=== PATIENT | male | born 1965 | race African-American/Black ===

== ENCOUNTER 2016-05-06 21:22 | Emergency (ER) | payer SELFPAY ==
--- NOTE | 2016-05-06 21:43 | ER Document Report ---
Addendum entered and electronically signed by MEREDITH PINA NP 05/06/16 21:44 : Course - Re-evaluation Re-evalutation: 05/06/16 21:44 Patient took 650 mg of aspirin prior to arrival Original Note: ED Medical Screen (RME) - General Stated Complaint: CHECK PAIN Mode of Arrival: Ambulatory Information source: Patient Notes: Patient is left-sided chest pain that started 1 hour ago. Pain radiates into left side of neck. No cough. No nausea or vomiting. Patient does report some shortness of breath. hx: None I have greeted and performed a rapid initial assessment of this patient. A comprehensive ED assessment and evaluation of the patient, analysis of test results and completion of the medical decision making process will be conducted by additional ED providers. - Related Data Allergies/Adverse Reactions: No Known Allergies Allergy (Unverified 09/14/11 21:43) Past Medical History - Immunizations Hx Diphtheria, Pertussis, Tetanus Vaccination: Yes Physical Exam - Cardiovascular Rhythm: Regular Heart sounds: S1 appreciated, S2 appreciated Murmur: No
[2016-05-06 21:45] VITALS: BP 121/71
[2016-05-06 22:42] LABS: ABSOLUTE EOSINOPHILS # (AUTO) 0.2 10^3/uL (0.0-0.6); ABSOLUTE LYMPHOCYTES (AUTO) 1.1 10^3/uL (0.5-4.7); ABSOLUTE MONOCYTES (AUTO) 0.7 10^3/uL (0.1-1.4); ABSOLUTE NEUT (AUTO) 2.5 10^3/uL (1.7-8.2); BASOPHILS % (AUTO) 0.7 % (0-2); EOSINOPHILS % (AUTO) 4.3 % (0-6); HEMATOCRIT 42.7 % (37.9-51.0); HEMOGLOBIN 14.1 g/dL (13.5-17.0); HGB HCT DIFFERENCE -0.4; MEAN CORPUSCULAR HEMOGLOBIN 27.1 pg (27.0-33.4); MEAN CORPUSCULAR VOLUME 82 fl (80-97); MONOCYTES % (AUTO) 16.3 % (3-13); RED CELL DISTRIBUTION WIDTH 13.4 % (11.5-14.0); SEGMENTED NEUTROPHILS % (AUTO) 54.7 % (42-78); WHITE BLOOD COUNT 4.5 10^3/uL (4.0-10.5)
[2016-05-06 22:55] LABS: ALANINE AMINOTRANSFERASE 32 U/L (21-72); ALBUMIN 4.3 g/dL (3.5-5.0); ALKALINE PHOSPHATASE 66 U/L (38-126); ANION GAP 12 (5-19); ASPARTATE AMINO TRANSFERASE 24 U/L (17-59); BILIRUBIN,TOTAL 0.8 mg/dL (0.2-1.3); BLOOD UREA NITROGEN 18 mg/dL (7-20); CALCIUM 9.5 mg/dL (8.4-10.2); CARBON DIOXIDE 28 mmol/L (22-30); CHLORIDE 103 mmol/L (98-107); CREATINE KINASE 211 U/L (55-170); CREATININE RESULT 1.29 mg/dL (0.52-1.25); GLUCOSE 80 mg/dL (75-110); LIPASE 229.9 U/L (23-300); POTASSIUM 4.1 mmol/L (3.6-5.0); SODIUM 142.8 mmol/L (137-145); TOTAL PROTEIN 7.6 g/dL (6.3-8.2)
[2016-05-06 22:56] LABS: APPEARANCE,URINE CLEAR; BILIRUBIN,URINE NEGATIVE (NEGATIVE); GLUCOSE, URINE NEGATIVE (NEGATIVE); KETONES,URINE NEGATIVE (NEGATIVE); LEUKOCYTE ESTERASE,URINE NEGATIVE (NEGATIVE); NITRITE,URINE NEGATIVE (NEGATIVE); PROTEIN,URINE NEGATIVE (NEGATIVE); URINE SPECIFIC GRAVITY 1.019
[2016-05-06 23:07] LABS: CREATINE KINASE MB 0.56 ng/mL (<4.55); TROPONIN I < 0.012 ng/mL
[2016-05-06 23:14] LABS: URINE BARBITURATES SCREEN NEGATIVE; URINE METHADONE SCREEN NEGATIVE; URINE OPIATES LOW NEGATIVE; URINE PHENCYCLIDINE SCREEN NEGATIVE
--- NOTE | 2016-05-07 08:09 | EKG REPORT ---
SEVERITY:- NORMAL ECG - SINUS RHYTHM : Confirmed by: Isrrael Duong MD 07-May-2016 08:08:35
== END 2016-05-07 00:40 | disposition left against medical advice (07) ==
LOC: ER 21:22
DX: R07.9 Chest pain, unspecified (principal); R06.02 Shortness of breath; Z53.20 Procedure and treatment not carried out because of patient's decision for unspecified reasons
CPT/HCPCS: 36415; 71020; 80053; 80307; 81001; 82550; 82553; 83690; 84484; 85025; 93005; 93010; 99281

== ENCOUNTER 2016-06-22 02:37 | Emergency (ER) | payer SELFPAY ==
[2016-06-22 02:54] VITALS: BP 133/80
--- NOTE | 2016-06-22 10:24 | EKG REPORT ---
SEVERITY:- NORMAL ECG - SINUS RHYTHM : Confirmed by: Isrrael Duong MD 22-Jun-2016 10:23:11
== END 2016-06-22 04:20 | disposition left against medical advice (07) ==
LOC: ER 02:37
DX: Z53.21 Procedure and treatment not carried out due to patient leaving prior to being seen by health care provider (principal)
CPT/HCPCS: 93005; 93010

== ENCOUNTER 2017-04-29 13:15 | Emergency (ER) | payer SELFPAY ==
[2017-04-29 13:29] VITALS: BP 124/74
[2017-04-29] MEDS ORDERED: DEXAMETHASONE SOD PHOS INJ 10 MG/1 ML VIAL IM ONE (15:49)
[2017-04-29] MEDS ORDERED: KETOROLAC TROMETHAMINE 60 MG/2 ML SDV IM ONE (15:49)
--- NOTE | 2017-04-29 15:55 | ER Document Report ---
ED Neck/Back Problem - General Chief Complaint: Neck Pain >24hrs old Stated Complaint: NECK PAIN Time Seen by Provider: 04/29/17 15:21 Mode of Arrival: Ambulatory Information source: Patient Notes: 51-year-old male presents to ED for complaint of neck pain for a week. He states he has not fallen or injured himself. 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 States that it is affecting his work and his sleep. He does demonstrate pain and swelling to both sides of his neck. TRAVEL OUTSIDE OF THE [place] 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 and this is what the pain has started Timing: Waxing and waning Quality of pain: Achy, Sharp, Throbbing Severity: Severe Pain Level: 5 Context: Other - Turning and bending head to paint ceilings Recent injury: No Associated symptoms: Like prior neck/back pain Exacerbated by: Other - Painting ceilings by leaning back Relieved by: Nothing Similar symptoms previously: Yes Recently seen / treated by doctor: No - Related Data Allergies/Adverse Reactions: No Known Allergies Allergy (Verified 04/29/17 13:16) Past Medical History - General Information source: Patient - Social History Smoking Status: Never Smoker Cigarette use (# per day): No Chew tobacco use (# tins/day): No Smoking Education Provided: No Frequency of alcohol use: None Drug Abuse: None 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 denies: DM, Thyroid Disfunction Patient has suicidal ideation: No Patient has homicidal ideation: No - Past Medical History Cardiac Medical History: Reports: None Pulmonary Medical History: Reports: Hx Bronchitis EENT Medical History: Reports: None Neurological Medical History: Reports: None Endocrine Medical History: Reports: None Renal/ Medical History: Reports: None Malignancy Medical History: Reports None GI Medical History: Reports: None Musculoskeltal Medical History: Reports Hx Musculoskeletal Trauma - Fractured left leg and a nail from a nail gun into the left leg Skin Medical History: Reports None Psychiatric Medical History: Reports: None Traumatic Medical History: Reports: Hx Fractures - Right leg had a nail gun nail in the left leg had a broken bone Infectious Medical History: Reports: None Past Surgical History: Reports: Hx Orthopedic Surgery - Nail gun now removed from right leg - Immunizations Immunizations up to date: Yes Hx Diphtheria, Pertussis, Tetanus Vaccination: Yes Review of Systems - Review of Systems Constitutional: No symptoms reported EENT: No symptoms reported Cardiovascular: No symptoms reported Respiratory: No symptoms reported Gastrointestinal: No symptoms reported Genitourinary: No symptoms reported Male Genitourinary: No symptoms reported Musculoskeletal: Muscle pain, Muscle stiffness, Neck pain Skin: No symptoms reported Hematologic/Lymphatic: No symptoms reported Neurological/Psychological: No symptoms reported -: Yes All other systems reviewed and negative Physical Exam - Vital signs Vitals: Temp Pulse Resp BP Pulse Ox 98.0 F 76 18 124/74 96 04/29/17 13:27 04/29/17 13:27 04/29/17 13:27 04/29/17 13:27 04/29/17 13:27 Interpretation: Normal - General General appearance: Appears well, Alert - HEENT Head: Normocephalic, Atraumatic Eyes: Normal Pupils: PERRL - Respiratory Respiratory status: No respiratory distress Chest status: Nontender Breath sounds: Normal Chest palpation: Normal - Cardiovascular Rhythm: Regular Heart sounds: Normal auscultation Murmur: No - Abdominal Inspection: Normal Distension: No distension Bowel sounds: Normal Tenderness: Nontender Organomegaly: No organomegaly - Back Back: Normal, Tender - Pain tightness to both sides of neck due to his occupation.. No: Deformity/step-off, CVA tenderness, Vertebra tenderness, Scars , Scoliosis, Wounds - Extremities General upper extremity: Normal inspection, Nontender, Normal color, Normal ROM , Normal temperature General lower extremity: Normal inspection, Nontender, Normal color, Normal ROM , Normal temperature, Normal weight bearing. No: Alex's sign - Neurological Neuro grossly intact: Yes Cognition: Normal Orientation: AAOx4 [place] Coma Scale Eye Opening: Spontaneous [place] Coma Scale Verbal: Oriented [place] Coma Scale Motor: Obeys Commands [place] Coma Scale Total: 15 Speech: Normal Motor strength normal: LUE, RUE, LLE, RLE Sensory: Normal - Psychological Associated symptoms: Normal affect, Normal mood - Skin Skin Temperature: Warm Skin Moisture: Dry Skin Color: Normal Course - Re-evaluation Re-evalutation: 04/29/17 15:58 Discussed need to use ice heat and muscle relaxers for the neck pain that he has muscle strain from looking at ceilings to pain. Patient was given Toradol Decadron in the emergency room and discharged home with prescription for ibuprofen and Flexeril patient was instructed on use of shoulder exercises and neck exercises to help reduce this discomfort. Patient was instructed to follow -up with her primary doctor within the week to ensure that this is improving. - Vital Signs Vital signs: Temp Pulse Resp BP Pulse Ox 98.0 F 76 18 124/74 96 04/29/17 13:27 04/29/17 13:27 04/29/17 13:27 04/29/17 13:27 04/29/17 13:27 Discharge - Discharge Clinical Impression: Cervical strain, acute Qualifiers: Encounter type: initial encounter Qualified Code(s): S16.1XXA - Strain of muscle, fascia and tendon at neck level, initial encounter Condition: Stable Disposition: HOME, SELF-CARE Instructions: Family Physicians / Practices, Exercise Program for the Shoulder (OM) Additional Instructions: NECK INJURY (CERVICAL STRAIN): You have a neck strain. This is an injury to the muscles and ligaments in the neck. There is no evidence of a fracture of the neck bones. Also, no injury to the spinal cord or nerve roots was detected. Usually, stiffness and pain INCREASE for the first 24-48 hours after the injury. The pain will gradually resolve and the neck will become more mobile. Most patients are back at work or school within a few days. Typically, complete healing takes about two or three weeks. The usual initial treatment is rest and cold packs. A neck collar may be placed to keep the muscles of the neck at rest. Antiinflammatory and muscle relaxing medication are often used to reduce the spasm and irritation. You should call the doctor, or go to the hospital, if you develop numbness or weakness in any extremity, problems with your bladder or bowel, or pain radiating down the arms. Massages to the neck would also benefit you. I have put you off work for 2 days, that does not mean to go home and sit on the couch that means you need to move around exercise usually ice and heat usual muscle relaxers STEROID MEDICATION: You have been given an injection of medicine of the cortisone/steroid class. This medication is used to control inflammation or allergy. It is often continued as a pill for a short period of time, until the acute process subsides. There are usually no side effects from short-term use of cortisone-like medications. Some persons feel an increased sense of well-being and are not sleepy at bedtime. Long-term use of cortisone medications is best avoided, unless required for a severe condition. If your condition does not remit, or relapses after the course of corticosteroid medication, you should consult your physician. Toradol Injection You have been given an injection of ketorolac tromethamine (Toradol). This is an excellent, safe drug for pain control. It also has potent antiinflammatory action. You should have significant pain relief within about one hour. Toradol is not addicting and is non-sedating. It does not interfere with driving or work. Call or return if you develop itching, hives, shortness of breath, or rash. MUSCLE STRAIN: You have strained a muscle -- torn the fibers within the muscle. This often occurs with strenuous exertion, or during an injury that suddenly stretches the muscle. The seriousness of a strain varies. Some strains heal within days, others cause problems for months. X-rays cannot show a muscle strain. X-rays are taken only if symptoms suggest that a fracture could be present. The usual treatment of a muscle strain is rest and ice packs. Sometimes, a sling, splint, or crutches may be necessary to rest the muscle. The muscle can be used again once pain subsides. Severe strains require a special exercise and stretching program to prevent permanent stiffness and disability. Your doctor will advise you if this will be necessary. Call the doctor immediately if pain or swelling becomes severe, or if numbness or discoloration develop. USE OF TYLENOL (ACETAMINOPHEN): Acetaminophen may be taken for pain relief or fever control. It's much safer than aspirin, offering a wider range of "safe" dosages. It is safe during . Some brand names are Tylenol, Panadol, Datril, Anacin 3, Tempra, and Liquiprin. Acetaminophen can be repeated every four hours. The following are maximum recommended dosages: WEIGHT Dose Drops Elixir Chewable( 80mg) (LBS.) drprs=droppers tsp=teaspoon 6 40 mg 0.4 ml (1/2) 6-11 80 mg 0.8 ml (full) tsp 1 tab 12-16 120 mg 1 1/2 drprs 3/4 tsp 1 1/2 tabs 17-23 160 mg 2 drprs 1 tsp 2 tabs 24-30 240 mg 3 drprs 1 1/2 tsp 3 tabs 30-35 320 mg 2 tsp 4 tabs 36-41 360 mg 2 1/4 tsp 4 1/2 tabs 42-47 400 mg 2 1/2 tsp 5 tabs 48-53 480 mg 3 tsp 6 tabs 54-59 520 mg 3 1/4 tsp 6 1/2 tabs 60-64 560 mg 3 1/2 tsp 7 tabs 65-70 600 mg 3 3/4 tsp 7 1/2 tabs 71-76 640 mg 4 tsp 8 tabs 77-82 720 mg 4 1/2 tsp 9 tabs 83-88 800 mg 5 tsp 10 tabs >89 pounds or adults 650 mg to 900 mg Acetaminophen can be repeated every four hours. Maximum dose not to exceed 4000 mg a day. These maximum recommended dosages are slightly higher than the dosages written on the product container, but these dosages are very safe and below the toxic dosage for acetaminophen. ICE PACKS: Apply ice packs frequently against the painful area. Many different schedules are recommended, such as "20 minutes on, 20 minutes off" or "one hour ice, two hours rest." If you need to work, you may need to go longer between ice treatments. You should plan to have the area ice packed AT LEAST one fourth of the time. The ice should be applied over the wrap, tape, or splint, or over a layer of cloth -- not directly against the skin. Some ice bags have a built-in cloth and can be put directly on the skin. WARM PACKS: After approximately two days, apply gentle heat (such as a heating pad or hot water bottle) for about 20 to 30 minutes about every two hours -- at least four times daily. Warmth and elevation will help you make a more rapid recovery , and will ease the pain considerably. Do not use HOT heat, and never apply heat for longer than 30 minutes. The continuous heat can invisibly damage skin and muscles -- even when no burn is seen on the surface. Damaged muscles can make you MORE sore. MUSCLE RELAXERS: Muscle relaxing medications are usually prescribed for acute muscle spasm or injury to the neck and back. They are often combined with antiinflammatory pain medication for increased relief. You may stop the muscle relaxer when the pain and stiffness have improved. Start the medication again if spasms recur. Muscle relaxers may cause drowsiness, especially with the first dose. Do not operate machinery or drive while under the effects of the medication. Most muscle relaxers last up to 24 hours. Do not combine the medication with alcohol. FOLLOW-UP CARE: If you have been referred to a physician for follow-up care, call the physician s office for an appointment as you were instructed or within the next two days. If you experience worsening or a significant change in your symptoms, notify the physician immediately or return to the Emergency Department at any time for re-evaluation. Prescriptions: Ibuprofen 600 mg PO Q8HP PRN #20 tablet PRN Reason: Cyclobenzaprine HCl [Flexeril 10 mg Tablet] 10 mg PO TIDP PRN #15 tab PRN Reason: Forms: Return to Work
== END 2017-04-29 16:20 | disposition home or self-care (01) ==
LOC: ER 13:15
DX: S16.1XXA Strain of muscle, fascia and tendon at neck level, initial encounter (principal); M54.2 Cervicalgia; X50.3XXA Overexertion from repetitive movements, initial encounter
CPT/HCPCS: 99283; 96372; J1885; J1100

== ENCOUNTER 2017-05-11 21:46 | Inpatient (IN) | payer SELFPAY ==
[2017-05-11] MEDS ORDERED: ACETAMINOPHEN 325 MG TABLET ONE (22:26)
[2017-05-11] MEDS ORDERED: IPRATROPIUM/ALBUTEROL 0.5-2.5 MG/3 ML AMPUL NEB ONE ×2 (22:26→22:45)
[2017-05-11] MEDS ORDERED: NORMAL SALINE 1000 ML 1,000 ML IV ONE ×2 (22:39→22:46)
[2017-05-11] MEDS ORDERED: ACETAMINOPHEN 325 MG TABLET PO ONE (22:40)
[2017-05-11] MEDS ORDERED: METHYLPREDNISOLONE INJ 125 MG/2 ML SDV IV ONE (22:45)
--- NOTE | 2017-05-11 22:48 | ER Document Report ---
ED General - General Chief Complaint: Flu Symptoms Stated Complaint: DIFFICULTY BREATHING/HEAD PAIN/WEAKNESS Time Seen by Provider: 05/11/17 22:38 Notes: Patient is a 51-year-old male that comes emergency department for chief complaint of fever, body aches, difficulty breathing, congested cough. He states he has been worsening for 5 days. Multiple sick family members. He denies smoking, he denies any medical history except that he frequently has to use an albuterol inhaler at home although he is not diagnosed with asthma. He has not had the influenza vaccine. TRAVEL OUTSIDE OF THE [place] IN LAST 30 DAYS: No - Related Data Allergies/Adverse Reactions: No Known Allergies Allergy (Verified 05/11/17 22:14) Past Medical History - General Information source: Patient, Relative - Social History Smoking Status: Never Smoker Frequency of alcohol use: None Drug Abuse: None Lives with: Family Family History: Arthritis, CAD, CVA, Hyperlipidemia, Hypertension, Malignancy. denies: DM, Thyroid Disfunction Patient has suicidal ideation: No Patient has homicidal ideation: No Pulmonary Medical History: Reports: Hx Bronchitis Renal/ Medical History: Denies: Hx Peritoneal Dialysis Musculoskeltal Medical History: Reports Hx Musculoskeletal Trauma - Fractured left leg and a nail from a nail gun into the left leg Traumatic Medical History: Reports: Hx Fractures - Right leg had a nail gun nail in the left leg had a broken bone Past Surgical History: Reports: Hx Orthopedic Surgery - Nail gun now removed from right leg - Immunizations Immunizations up to date: Yes Hx Diphtheria, Pertussis, Tetanus Vaccination: Yes Review of Systems - Review of Systems Constitutional: See HPI EENT: No symptoms reported Cardiovascular: No symptoms reported Respiratory: See HPI Gastrointestinal: No symptoms reported Genitourinary: No symptoms reported Male Genitourinary: No symptoms reported Musculoskeletal: No symptoms reported Skin: No symptoms reported Hematologic/Lymphatic: No symptoms reported Neurological/Psychological: No symptoms reported Physical Exam - Vital signs Vitals: Temp Pulse Resp BP Pulse Ox 102.0 F H 127 H 28 H 99/59 L 90 L 05/11/17 22:05 05/11/17 22:05 05/11/17 22:05 05/11/17 22:05 05/11/17 22:05 - General General appearance: Other - Patient ill in appearance, moves and talks weakly - HEENT Head: Normocephalic, Atraumatic Eyes: Normal Conjunctiva: Normal Eyelashes: Normal Pupils: PERRL Mouth/Lips: Normal Mucous membranes: Normal Pharynx: Normal Neck: Normal - Respiratory Respiratory status: Respiratory distress - Tachypnea with mild labored breathing , Tachypnea Breath sounds: Nonproductive cough, Wheezing - Expiratory wheezes, Other - Scattered rhonchi mainly in the upper lobes - Cardiovascular Rhythm: Regular, Tachycardia Heart sounds: Normal auscultation, S1 appreciated, S2 appreciated Murmur: No Normal capillary refill: Yes - Abdominal Inspection: Normal Tenderness: Nontender. No: Tender, Guarding - Back Back: Normal. No: Tender - Extremities General upper extremity: Normal inspection, Nontender, Normal strength, Normal temperature General lower extremity: Normal inspection, Nontender, Normal strength, Normal temperature - Neurological Neuro grossly intact: Yes Cognition: Normal Orientation: AAOx4 [place] Coma Scale Eye Opening: Spontaneous [place] Coma Scale Verbal: Oriented [place] Coma Scale Motor: Obeys Commands [place] Coma Scale Total: 15 Speech: Normal Motor strength normal: LUE, RUE, LLE, RLE Sensory: Normal - Skin Skin Temperature: Warm Skin Moisture: Dry Skin Color: Normal Course - Re-evaluation Re-evalutation: On initial presentation patient with mild respiratory distress, expiratory wheezes, scattered rhonchi, he is febrile, tachycardic, and hypoxic. Placed on oxygen, on oxygen 3 L nasal cannula his oxygen saturation normalized. After IV fluids his tachycardia did improve. After multiple treatments, Solu- Medrol, magnesium patient's lungs significantly cleared, respiratory distress resolved. CBC unremarkable, chest x-ray unremarkable, venous blood gas unremarkable. Suspect patient has influenza. No known history of asthma but he uses a friend' s albuterol inhaler frequently at home. No smoking history. Suspect asthma exacerbation and viral infection. Discussed with patient, he states he wants to try to go home. I turned off his oxygen and his oxygen saturation dropped down to 90% on room air without ambulation. He continues to be tachycardic. Because of his abnormal vital signs and presentation I recommended admission to the hospital. Patient states agreement. Discussed with Dr. Villa, internal medicine, patient will be admitted to telemetry full admission. - Vital Signs Vital signs: Temp Pulse Resp BP Pulse Ox 99.0 F 102 H 33 H 113/74 91 L 05/12/17 02:00 05/12/17 03:48 05/12/17 04:30 05/12/17 04:30 05/12/17 04:30 - Laboratory Result Diagrams: 05/11/17 22:21 05/11/17 23:03 Laboratory results interpreted by me: 05/11/17 05/11/17 22:21 23:03 Seg Neutrophils % 88.5 H Lymphocytes % 5.8 L Creatinine 1.43 H Est GFR (Non-Af Amer) 52 L Glucose 111 H Calcium 8.2 L Total Protein 6.2 L Discharge - Discharge Clinical Impression: Hypoxia, Wheezing, Tachycardia Fever Qualifiers: Fever type: unspecified Qualified Code(s): R50.9 - Fever, unspecified Condition: Fair Disposition: ADMITTED INPATIENT Admitting Provider: Hospitalist Unit Admitted: Telemetry
[2017-05-11 22:55] LABS: ABSOLUTE LYMPHOCYTES (AUTO) 0.5 10^3/uL (0.5-4.7); ABSOLUTE MONOCYTES (AUTO) 0.5 10^3/uL (0.1-1.4); ABSOLUTE NEUT (AUTO) 7.7 10^3/uL (1.7-8.2); BASOPHILS % (AUTO) 0.3 % (0-2); EOSINOPHILS % (AUTO) 0.1 % (0-6); HEMATOCRIT 43.7 % (37.9-51.0); HEMOGLOBIN 14.7 g/dL (13.5-17.0); LYMPHOCYTES % (AUTO) 5.8 % (13-45); MEAN CORPUSCULAR HEMOGLOBIN 27.1 pg (27.0-33.4); MEAN CORPUSCULAR HGB CONC 33.7 g/dL (32.0-36.0); MEAN CORPUSCULAR VOLUME 81 fl (80-97); MONOCYTES % (AUTO) 5.3 % (3-13); PLATELET COUNT 174 10^3/uL (150-450); RED BLOOD COUNT 5.42 10^6/uL (4.35-5.55); RED CELL DISTRIBUTION WIDTH 13.6 % (11.5-14.0); SEGMENTED NEUTROPHILS % (AUTO) 88.5 % (42-78); TOTAL CELLS COUNTED % (AUTO) 100 %; WHITE BLOOD COUNT 8.7 10^3/uL (4.0-10.5)
[2017-05-11 23:37] LABS: VENOUS BLOOD BASE EXCESS 2.1 mmol/L; VENOUS BLOOD HCO3 28.6 mmol/L (20-32); VENOUS BLOOD PCO2 52.4 mmHg (35-63); VENOUS BLOOD PH 7.36 (7.30-7.42)
--- NOTE | 2017-05-11 23:46 | RADIOLOGY REPORT (SQ) ---
EXAM DESCRIPTION: CHEST SINGLE VIEW COMPLETED DATE/TIME: 05/11/2017 11:32 pm REASON FOR STUDY: Cough COMPARISON: 05/08/2016 EXAM PARAMETERS: NUMBER OF VIEWS: One view. TECHNIQUE: Single frontal radiographic view of the chest acquired. RADIATION DOSE: NA LIMITATIONS: None. FINDINGS: LUNGS AND PLEURA: No acute opacities, masses or pneumothorax. No pleural effusion. MEDIASTINUM AND HILAR STRUCTURES: Stable. HEART AND VASCULAR STRUCTURES: Heart normal in size. Normal vasculature. BONES: No acute findings. HARDWARE: None in the chest. OTHER: No other significant finding. IMPRESSION: NO ACUTE RADIOGRAPHIC FINDING IN THE CHEST. TECHNICAL DOCUMENTATION: JOB ID: [id number] [id number] 2010 [employer]- All Rights Reserved
[2017-05-11] MEDS ORDERED: MAGNESIUM SULFATE/D5W 1 GM/100 ML RTUPB IV PRN (23:56)
[2017-05-12 00:06] LABS: ALANINE AMINOTRANSFERASE 22 U/L (21-72); ALBUMIN 3.5 g/dL (3.5-5.0); ALKALINE PHOSPHATASE 52 U/L (38-126); ANION GAP 9 (5-19); ASPARTATE AMINO TRANSFERASE 22 U/L (17-59); BILIRUBIN,DIRECT 0.1 mg/dL (0.0-0.4); BILIRUBIN,TOTAL 0.3 mg/dL (0.2-1.3); BLOOD UREA NITROGEN 18 mg/dL (7-20); CALCIUM 8.2 mg/dL (8.4-10.2); CARBON DIOXIDE 26 mmol/L (22-30); CHLORIDE 106 mmol/L (98-107); GLUCOSE 111 mg/dL (75-110); POTASSIUM 3.9 mmol/L (3.6-5.0); TOTAL PROTEIN 6.2 g/dL (6.3-8.2)
[2017-05-12] MEDS ORDERED: RINGERS SOLUTION,LACTATED 1,000 ML IV PRN (01:30)
[2017-05-12] MEDS ORDERED: ONDANSETRON HCL INJ/PF 4 MG/2 ML SDV IV PRN (01:30)
[2017-05-12] MEDS ORDERED: HYDROCODONE BIT/HOMATROPINE 5-1.5 MG TABLET PO PRN (01:36)
[2017-05-12] MEDS ORDERED: MAGNESIUM SULFATE/D5W 1 GM/100 ML RTUPB IV ONE (01:37)
[2017-05-12] MEDS ORDERED: CEFTRIAXONE 1 GM/D5W RTU 1 GM/50 ML RTUPB IV ONE (02:00)
--- NOTE | 2017-05-12 02:20 | PDOC H&P ---
History of Present Illness Admission Date/PCP: 05/12/17 01:11 Patient complains of: Cough, fever, body aches, shortness of breath History of Present Illness: JOHNATHON MASCORRO JR is a 51 year old male past medical history of bronchitis presenting with 4 days of cough, fever of T-max of 102, body aches and shortness of breath. Patient states he has been around his grandson who is actually in the ED the day prior to patient's presentation for similar symptoms. Patient states he got some medication from his and he did feel a little bit better however the symptoms came back again once he went out started trying to do activities. Also noticed that he was short of breath. Patient does not smoke however he is around his who smokes all the time. 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 Patient states that he uses an inhaler as needed. ED patient was found to be febrile at 102 with a pulse of 127 and showing signs of respiratory distress. Patient is requiring supplemental oxygen in order to maintain oxygen saturations of 90 or above. Patient also has distress with activity. Hospitalist was called to admit patient for respiratory distress most likely due to viral illness and acute bronchitis. Past Medical History Pulmonary Medical History: Reports: Bronchitis Past Surgical History Past Surgical History: Reports: Orthopedic Surgery - Nail gun now removed from right leg Social History Smoking Status: Never Smoker Hx Recreational Drug Use: No Hx Prescription Drug Abuse: No - Advance Directive Resuscitation Status: Full Code Family History Family History: Arthritis, CAD, CVA, Hyperlipidemia, Hypertension, Malignancy. denies: DM, Thyroid Disfunction Parental Family History Reviewed: No Children Family History Reviewed: No Sibling(s) Family History Reviewed.: No Medication/Allergy Home Medications: No Home Medications 1 09/14/11 Ibuprofen [Motrin 600 mg Tablet] 600 mg PO Q8 #30 tablet 09/15/11 Cyclobenzaprine HCl [Flexeril 10 mg Tablet] 10 mg PO TIDP PRN #15 tab 04/29/17 Ibuprofen 600 mg PO Q8HP PRN #20 tablet 04/29/17 Allergies/Adverse Reactions: No Known Allergies Allergy (Verified 05/11/17 22:14) Review of Systems Constitutional: PRESENT: chills, fever(s). ABSENT: headache(s), weight gain, weight loss Eyes: ABSENT: visual disturbances Ears: ABSENT: hearing changes Cardiovascular: ABSENT: chest pain, dyspnea on exertion, edema, orthropnea, palpitations Respiratory: PRESENT: cough, dyspnea. ABSENT: hemoptysis Gastrointestinal: ABSENT: abdominal pain, constipation, diarrhea, hematemesis, hematochezia, nausea, vomiting Genitourinary: ABSENT: dysuria, hematuria Musculoskeletal: ABSENT: joint swelling Integumentary: ABSENT: rash, wounds Neurological: ABSENT: abnormal gait, abnormal speech, confusion, dizziness, focal weakness, syncope Psychiatric: ABSENT: anxiety, depression, homidical ideation, suicidal ideation Endocrine: ABSENT: cold intolerance, heat intolerance, polydipsia, polyuria Hematologic/Lymphatic: ABSENT: easy bleeding, easy bruising Physical Exam Vital Signs: Temp Pulse Resp BP Pulse Ox 102.0 F H 127 H 16 105/68 97 05/11/17 22:05 05/11/17 22:05 05/11/17 23:31 05/11/17 23:31 05/11/17 23:31 General appearance: PRESENT: no acute distress, well-developed, well-nourished Head exam: PRESENT: normocephalic Eye exam: PRESENT: EOMI. ABSENT: scleral icterus Ear exam: PRESENT: normal external ear exam Mouth exam: PRESENT: moist Neck exam: ABSENT: carotid bruit, JVD, lymphadenopathy, thyromegaly Respiratory exam: PRESENT: clear to auscultation baljit, decreased breath sounds, other - nasal cannula in place. ABSENT: accessory muscle use, rales, rhonchi, unlabored, wheezes Cardiovascular exam: PRESENT: RRR. ABSENT: diastolic murmur, rubs, systolic murmur Pulses: PRESENT: normal dorsalis pedis pul Vascular exam: PRESENT: normal capillary refill GI/Abdominal exam: PRESENT: normal bowel sounds, soft. ABSENT: distended, guarding, mass, organolmegaly, rebound, tenderness Rectal exam: PRESENT: deferred Extremities exam: PRESENT: full ROM. ABSENT: calf tenderness, clubbing, pedal edema Neurological exam: PRESENT: alert, awake, oriented to person, oriented to place , oriented to time, oriented to situation, CN II-XII grossly intact. ABSENT: motor sensory deficit Psychiatric exam: PRESENT: appropriate affect, normal mood. ABSENT: homicidal ideation, suicidal ideation Skin exam: PRESENT: dry, intact, warm. ABSENT: cyanosis, rash Results Laboratory Results: 05/11/17 05/11/17 05/11/17 22:21 23:03 23:03 WBC 8.7 RBC 5.42 Hgb 14.7 Hct 43.7 MCV 81 MCH 27.1 MCHC 33.7 RDW 13.6 Plt Count 174 Seg Neutrophils % 88.5 H Lymphocytes % 5.8 L Monocytes % 5.3 Eosinophils % 0.1 Basophils % 0.3 Absolute Neutrophils 7.7 Absolute Lymphocytes 0.5 Absolute Monocytes 0.5 Absolute Eosinophils 0.0 Absolute Basophils 0.0 VBG pH 7.36 VBG pCO2 52.4 VBG HCO3 28.6 VBG Base Excess 2.1 Sodium 141.0 Potassium 3.9 Chloride 106 Carbon Dioxide 26 Anion Gap 9 BUN 18 Creatinine 1.43 H Est GFR ( Amer) > 60 Est GFR (Non-Af Amer) 52 L Glucose 111 H Calcium 8.2 L Total Bilirubin 0.3 Direct Bilirubin 0.1 AST 22 ALT 22 Alkaline Phosphatase 52 Total Protein 6.2 L Albumin 3.5 Impressions: Chest X-Ray 05/11/17 22:38 IMPRESSION: NO ACUTE RADIOGRAPHIC FINDING IN THE CHEST. Assessment & Plan - Diagnosis (1) Sepsis Is this a current diagnosis for this admission?: Yes Plan: On admission patient was febrile, tachycardic, hypotensive with respiratory distress most likely due to a viral illness. Patient started on ceftriaxone and azithromycin. Patient also started on Tamiflu as he has had its exposure to the flu. Patient was initially borderline hypotensive however on evaluation of the patient patient has systolic blood pressures in the 90s. Patient received 2 L of normal saline. Patient is now on lactated Ringer's at 100 cc an hour. (2) Respiratory distress Is this a current diagnosis for this admission?: Yes Plan: Respiratory distress secondary to viral bronchitis. Concerned that patient may have influenza on his symptoms of fever or body aches and cough along with respiratory distress. Patient started on Tamiflu, Zithromax and ceftriaxone. Patient requiring supplemental oxygen. Patient having increased work of breathing when oxygen is removed her oxygen saturation did not fall below 90% .Wean oxygen as tolerated. Patient does not use supplemental oxygen at home. (3) Acute bronchitis Is this a current diagnosis for this admission?: Yes Plan: Patient currently on ceftriaxone and azithromycin. Tamiflu also being added for possible influenza based on patient's symptoms exposure. Patient started on bronchodilators, steroids, mucolytic's and antitussives. Patient also requires supplemental oxygen. 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 (4) Acute renal failure Is this a current diagnosis for this admission?: Yes Plan: Patient appears to have acute on chronic CKD stage III. Creatinine is 1.43 patient does have a recorded creatinine of 1.24 in 2017. Patient GFR was 59 then and is now 52. Patient receiving IV hydration will monitor renal function. Avoid nephrotoxins. Patient has recorded down on his medications Motrin. This medication will be discontinued. - Time Time Spent: 30 to 50 Minutes Anticipated discharge: Home Within: within 72 hours - Inpatient Certification Medical Necessity: Significant Comorbidiites Make Outpatient Treatment Too Risky , Need Close Monitoring Due to Risk of Patient Decompensation, Need For Continuous Telemetry Monitoring, Need for Nebulizer Therapy and Monitoring of Response, Need for IV Antibiotics
[2017-05-12] MEDS: LEVALBUTEROL HCL NEB 1.25 MG/3 ML AMPUL NEB SCH ×5 (03:48→20:30)
[2017-05-12] MEDS: LANSOPRAZOLE 30 MG TAB.RAP.DR PO SCH (05:42)
[2017-05-12] MEDS: METHYLPREDNISOLONE INJ 40 MG/1 ML SDV IV SCH ×3 (05:42→21:18)
[2017-05-12] MEDS: BUDESONIDE NEB 0.5 MG/2 ML AMPUL NEB SCH ×2 (08:08→20:30)
[2017-05-12] MEDS: ACETAMINOPHEN 325 MG TABLET PO PRN ×2 (08:43→18:33)
[2017-05-12] MEDS ORDERED: OSELTAMIVIR PHOSPHATE 75 MG CAPSULE PO SCH (10:00)
[2017-05-12] MEDS: AZITHROMYCIN 250 MG TABLET PO SCH (10:15)
[2017-05-12] MEDS: CEFTRIAXONE 2 GM/D5W RTU 2 GM/50 ML RTUPB IV SCH (10:15)
--- NOTE | 2017-05-12 18:26 | PDOC PROGRESS REPORT ---
Subjective Progress Note for:: 05/12/17 Subjective:: She was admitted earlier today for acute bronchitis, hypoxic respiratory failure and sepsis. He does not have an elevated white blood cell count. At this time we are presuming that his symptoms may be from a viral infection. So far, his chest x-ray is clear but he is also dehydrated and may blossom out infiltrate later. Reason For Visit: RESPIRATORY DISTRESS, ACUTE BRONCHITIS, VIRAL Physical Exam Vital Signs: Temp Pulse Resp BP Pulse Ox 99.0 F 98 20 102/70 96 05/12/17 02:00 05/12/17 16:06 05/12/17 16:06 05/12/17 15:31 05/12/17 16:06 Intake & Output 05/11/17 05/12/17 05/13/17 06:59 06:59 06:59 Intake Total 570 Balance 570 Additional comments: Patient is slightly tachypneic but able to maintain a decent conversation. His mentation is appropriate. The patient's normal. The patient's pulmonary exam demonstrates coarse breath sounds in the left lung field more so than in the right lung field but the right lung field does have some rhonchi as well. The cardiac exam is regular without murmurs, gallops or rubs. The abdomen is soft and flat. Bowel sounds are present in the lower quadrants. Lower extremities are warm to touch without edema. Results Impressions: Chest X-Ray 05/11/17 22:38 IMPRESSION: NO ACUTE RADIOGRAPHIC FINDING IN THE CHEST. Assessment & Plan - Diagnosis (1) Acute bronchitis Is this a current diagnosis for this admission?: Yes (2) Acute renal failure Is this a current diagnosis for this admission?: Yes (3) Fever Qualifiers: Fever type: unspecified Qualified Code(s): R50.9 - Fever, unspecified Is this a current diagnosis for this admission?: Yes (4) Hypoxia Is this a current diagnosis for this admission?: Yes (5) Respiratory distress Is this a current diagnosis for this admission?: Yes (6) Sepsis Is this a current diagnosis for this admission?: Yes (7) Tachycardia Is this a current diagnosis for this admission?: Yes - Time Time Spent with patient: 15-24 minutes - Inpatient Certification Medical Necessity: Need for Nebulizer Therapy and Monitoring of Response, Need for IV Antibiotics, Risk of Complication if Not Cared For in Hospital - Plan Summary Plan Summary: At this point time we are going to continue the patient on IV antibiotics and also influenza coverage. He is also receiving appropriate coverage for bronchitis. The patient has evidence of acute on chronic renal failure. He is receiving IV hydration. We will repeat labs in the morning. The patient requires hospitalization at this time.
[2017-05-12] MEDS: MONTELUKAST SODIUM 10 MG TABLET PO SCH (21:18)
[2017-05-12] MEDS ORDERED: CEFTRIAXONE 1 GM/D5W RTU 1 GM/50 ML RTUPB IV SCH (22:00)
[2017-05-12] MEDS: OSELTAMIVIR PHOSPHATE 75 MG CAPSULE PO SCH (23:11)
[2017-05-13] MEDS: LEVALBUTEROL HCL NEB 1.25 MG/3 ML AMPUL NEB SCH ×7 (00:13→23:38)
[2017-05-13] MEDS: LANSOPRAZOLE 30 MG TAB.RAP.DR PO SCH (05:37)
[2017-05-13] MEDS: METHYLPREDNISOLONE INJ 40 MG/1 ML SDV IV SCH ×2 (05:38→14:59)
[2017-05-13 07:17] LABS: HEMATOCRIT 39.9 % (37.9-51.0); HEMOGLOBIN 13.2 g/dL (13.5-17.0); MEAN CORPUSCULAR HEMOGLOBIN 26.8 pg (27.0-33.4); MEAN CORPUSCULAR HGB CONC 33.1 g/dL (32.0-36.0); MEAN CORPUSCULAR VOLUME 81 fl (80-97); PLATELET COUNT 149 10^3/uL (150-450); RED BLOOD COUNT 4.94 10^6/uL (4.35-5.55); RED CELL DISTRIBUTION WIDTH 14.1 % (11.5-14.0); WHITE BLOOD COUNT 11.2 10^3/uL (4.0-10.5)
[2017-05-13 07:33] LABS: ANION GAP 9 (5-19); BLOOD UREA NITROGEN 12 mg/dL (7-20); CALCIUM 9.4 mg/dL (8.4-10.2); CARBON DIOXIDE 24 mmol/L (22-30); CHLORIDE 108 mmol/L (98-107); GLUCOSE 198 mg/dL (75-110); MAGNESIUM 2.2 mg/dL (1.6-2.3); POTASSIUM 4.4 mmol/L (3.6-5.0); SODIUM 140.8 mmol/L (137-145)
[2017-05-13 07:43] LABS: ABSOLUTE LYMPHOCYTES# (MANUAL) 0.1 10^3/uL (0.5-4.7); ABSOLUTE NEUTROPHILS# (MANUAL) 11.1 10^3/uL (1.7-8.2); BAND NEUTROPHILS % (MANUAL) 1 % (3-5); BASOPHILS % (MANUAL) 0 % (0-2); EOSINOPHILS % (MANUAL) 0 % (0-6); LYMPHOCYTES % (MANUAL) 0 % (13-45); MONOCYTES % (MANUAL) 0 % (3-13); SEGMENTED NEUTROPHILS % (MAN) 98 % (42-78); TOTAL CELLS COUNTED 100
[2017-05-13 07:44] LABS: ANISOCYTOSIS SLIGHT; PLATELET COMMENT ADEQUATE; TOXIC GRANULATION SLIGHT
[2017-05-13] MEDS: BUDESONIDE NEB 0.5 MG/2 ML AMPUL NEB SCH ×2 (08:53→19:46)
[2017-05-13] MEDS: AZITHROMYCIN 250 MG TABLET PO SCH (10:59)
[2017-05-13] MEDS: OSELTAMIVIR PHOSPHATE 75 MG CAPSULE PO SCH ×2 (11:00→22:02)
[2017-05-13] MEDS: CEFTRIAXONE 2 GM/D5W RTU 2 GM/50 ML RTUPB IV SCH (11:46)
--- NOTE | 2017-05-13 16:40 | PDOC PROGRESS REPORT ---
Subjective Progress Note for:: 05/13/17 Subjective:: The patient was admitted with acute bronchitis, hypoxic respiratory failure and sepsis. He does not have an elevated white blood cell count. At this time we are presuming that his symptoms may be from a viral infection. So far, his chest x-ray is clear but he was likely dehydrated on admission. The patient is feeling better today. Upon further questioning he admits that he likely has a diagnosis of asthma. He does not seek medical attention because he does not have health insurance. Reason For Visit: RESPIRATORY DISTRESS, ACUTE BRONCHITIS, VIRAL Physical Exam Vital Signs: Temp Pulse Resp BP Pulse Ox 97.2 F 76 18 111/70 96 05/13/17 11:41 05/13/17 12:29 05/13/17 12:29 05/13/17 11:41 05/13/17 12:29 Intake & Output 05/12/17 05/13/17 05/14/17 06:59 06:59 06:59 Intake Total 795 Balance 795 Weight 67.4 kg Additional comments: The patient is a well-developed well-nourished male. He appears to be less dyspneic and tachypneic than yesterday. His facial appearance is unremarkable. Today, he continues to have coarse wheezing in all lung chun. His cardiac exam is regular without murmurs, gallops or rubs. The abdomen is soft and flat. Bowel sounds are present in the lower quadrants. He does not have guarding or rebound noted and there are no hernias or masses present. The lower extremities are warm to touch without edema. The skin is warm dry and intact without lesions or rashes. Results Laboratory Results: 05/13/17 06:37 05/13/17 06:37 05/13/17 05/13/17 06:37 06:37 WBC 11.2 H RBC 4.94 Hgb 13.2 L Hct 39.9 MCV 81 MCH 26.8 L MCHC 33.1 RDW 14.1 H Plt Count 149 L Seg Neutrophils % Not Reportable Lymphocytes % Not Reportable Monocytes % Not Reportable Eosinophils % Not Reportable Basophils % Not Reportable Absolute Neutrophils Not Reportable Absolute Lymphocytes Not Reportable Absolute Monocytes Not Reportable Absolute Eosinophils Not Reportable Absolute Basophils Not Reportable Sodium 140.8 Potassium 4.4 Chloride 108 H Carbon Dioxide 24 Anion Gap 9 BUN 12 Creatinine 0.99 Est GFR ( Amer) > 60 Est GFR (Non-Af Amer) > 60 Glucose 198 H Calcium 9.4 Magnesium 2.2 Impressions: Chest X-Ray 05/11/17 22:38 IMPRESSION: NO ACUTE RADIOGRAPHIC FINDING IN THE CHEST. Assessment & Plan - Diagnosis (1) Acute bronchitis Is this a current diagnosis for this admission?: Yes (2) Acute renal failure Is this a current diagnosis for this admission?: Yes (3) Fever Qualifiers: Fever type: unspecified Qualified Code(s): R50.9 - Fever, unspecified Is this a current diagnosis for this admission?: Yes (4) Hypoxia Is this a current diagnosis for this admission?: Yes (5) Respiratory distress Is this a current diagnosis for this admission?: Yes (6) Sepsis Is this a current diagnosis for this admission?: Yes (7) Tachycardia Is this a current diagnosis for this admission?: Yes - Time Time Spent with patient: 15-24 minutes - Inpatient Certification Medical Necessity: Need Close Monitoring Due to Risk of Patient Decompensation, Need For Continuous Telemetry Monitoring, Need for Nebulizer Therapy and Monitoring of Response, Need for IV Antibiotics, Risk of Complication if Not Cared For in Hospital - Plan Summary Plan Summary: The patient remains on both antibiotic and antiviral therapy. He will continue to get bronchodilators. Today, I switched him to oral steroids. I will order baseline spirometry. Hopefully, we can transition the patient to outpatient therapy and discharge him in the morning.
[2017-05-13] MEDS: PREDNISONE 20 MG TABLET PO SCH (18:08)
[2017-05-13] MEDS: MONTELUKAST SODIUM 10 MG TABLET PO SCH (22:02)
[2017-05-14] MEDS: ACETAMINOPHEN 325 MG TABLET PO PRN (01:17)
[2017-05-14] MEDS: LEVALBUTEROL HCL NEB 1.25 MG/3 ML AMPUL NEB SCH ×3 (03:34→12:55)
[2017-05-14] MEDS: LANSOPRAZOLE 30 MG TAB.RAP.DR PO SCH (06:16)
[2017-05-14 07:33] LABS: HEMATOCRIT 40.5 % (37.9-51.0); HEMOGLOBIN 13.4 g/dL (13.5-17.0); MEAN CORPUSCULAR HEMOGLOBIN 26.6 pg (27.0-33.4); MEAN CORPUSCULAR HGB CONC 33.1 g/dL (32.0-36.0); MEAN CORPUSCULAR VOLUME 80 fl (80-97); PLATELET COUNT 187 10^3/uL (150-450); RED BLOOD COUNT 5.04 10^6/uL (4.35-5.55); RED CELL DISTRIBUTION WIDTH 14.1 % (11.5-14.0); WHITE BLOOD COUNT 14.5 10^3/uL (4.0-10.5)
[2017-05-14 07:52] LABS: ANION GAP 11 (5-19); BLOOD UREA NITROGEN 16 mg/dL (7-20); CALCIUM 9.7 mg/dL (8.4-10.2); CARBON DIOXIDE 23 mmol/L (22-30); CHLORIDE 107 mmol/L (98-107); GLUCOSE 131 mg/dL (75-110); MAGNESIUM 2.1 mg/dL (1.6-2.3); POTASSIUM 4.4 mmol/L (3.6-5.0); SODIUM 141.3 mmol/L (137-145)
[2017-05-14 08:13] LABS: ABSOLUTE LYMPHOCYTES# (MANUAL) 0.7 10^3/uL (0.5-4.7); ABSOLUTE MONOCYTES # (MANUAL) 0.7 10^3/uL (0.1-1.4); ABSOLUTE NEUTROPHILS# (MANUAL) 13.1 10^3/uL (1.7-8.2); ANISOCYTOSIS SLIGHT; BASOPHILS % (MANUAL) 0 % (0-2); EOSINOPHILS % (MANUAL) 0 % (0-6); LYMPHOCYTES % (MANUAL) 5 % (13-45); MONOCYTES % (MANUAL) 5 % (3-13); OVALOCYTES 1+; PLATELET COMMENT ADEQUATE; POIKILOCYTOSIS 1+; SEGMENTED NEUTROPHILS % (MAN) 90 % (42-78); TOTAL CELLS COUNTED 100; TOXIC VACUOLATION PRESENT
[2017-05-14] MEDS: BUDESONIDE NEB 0.5 MG/2 ML AMPUL NEB SCH (09:04)
[2017-05-14] MEDS: AZITHROMYCIN 250 MG TABLET PO SCH (12:30)
[2017-05-14] MEDS: OSELTAMIVIR PHOSPHATE 75 MG CAPSULE PO SCH (12:30)
[2017-05-14] MEDS: PREDNISONE 20 MG TABLET PO SCH (12:30)
[2017-05-14] MEDS: CEFTRIAXONE 2 GM/D5W RTU 2 GM/50 ML RTUPB IV SCH (12:31)
--- NOTE | 2017-05-14 14:28 | PDOC DISCHARGE SUMMARY ---
General - Admit/Disc Date/PCP Admission Date/Primary Care Provider: 05/12/17 01:11 Discharge Date: 05/14/17 - Discharge Diagnosis (1) Acute bronchitis Is this a current diagnosis for this admission?: Yes (2) Acute renal failure Is this a current diagnosis for this admission?: Yes (3) Fever Is this a current diagnosis for this admission?: Yes (4) Hypoxia Is this a current diagnosis for this admission?: Yes (5) Respiratory distress Is this a current diagnosis for this admission?: Yes (6) Sepsis Is this a current diagnosis for this admission?: Yes (7) Tachycardia Is this a current diagnosis for this admission?: Yes - Additional Information Resuscitation Status: Full Code Discharge Diet: Regular Discharge Activity: Balance Activity w/Rest Prescriptions: Azithromycin [Zithromax 250 mg Tablet] 500 mg PO DAILY 3 Days #3 tablet Budesonide [Pulmicort Neb 0.5 mg/2 ml Ampul] 0.5 mg NEB RTQ12 30 Days #60 ampul.neb Ipratropium/Albuterol Sulfate [Duoneb 3 ml Ampul] 3 ml NEB RTQ6HP PRN 30 Days # 120 vial.neb PRN Reason: Prednisone [Deltasone 20 mg Tablet] 20 mg PO DAILY 7 Days #7 tablet Home Medications: Cyclobenzaprine HCl [Flexeril 10 mg Tablet] 10 mg PO ASDIR PRN 05/12/17 Ibuprofen 200 mg PO ASDIR PRN 05/12/17 Azithromycin [Zithromax 250 mg Tablet] 500 mg PO DAILY 3 Days #3 tablet Budesonide [Pulmicort Neb 0.5 mg/2 ml Ampul] 0.5 mg NEB RTQ12 30 Days #60 ampul.neb 05/14/17 Ipratropium/Albuterol Sulfate [Duoneb 3 ml Ampul] 3 ml NEB RTQ6HP PRN 30 Days # 120 vial.neb 05/14/17 Prednisone [Deltasone 20 mg Tablet] 20 mg PO DAILY 7 Days #7 tablet 05/14/17 History of Present Illness History of Present Illness: JOHNATHON MASCORRO JR is a 51 year old male past medical history of bronchitis presenting with 4 days of cough, fever of T-max of 102, body aches and shortness of breath. Patient states he has been around his grandson who is actually in the ED the day prior to patient's presentation for similar symptoms. Patient states he got some medication from his and he did feel a little bit better however the symptoms came back again once he went out started trying to do activities. Also noticed that he was short of breath. Patient does not smoke however he is around his who smokes all the time. 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 Patient states that he uses an inhaler as needed. ED patient was found to be febrile at 102 with a pulse of 127 and showing signs of respiratory distress. Patient is requiring supplemental oxygen in order to maintain oxygen saturations of 90 or above. Patient also has distress with activity. Hospitalist was called to admit patient for respiratory distress most likely due to viral illness and acute bronchitis. Hospital Course Hospital Course: Patient was admitted and treated for acute bronchitis secondary to tracheobronchitis. Due to the fact that we were unable to exclude influenza he was empirically treated with Tamiflu during his hospitalization. He was also treated with systemic corticosteroids and bronchodilator therapy as well as azithromycin. He will be discharged on azithromycin and prednisone. He will also be discharged on nebulizer therapies with budesonide and DuoNeb. The patient appears to have severe, untreated asthma. Pulmonary function testing demonstrates a severe impairment. This appears to be primarily obstructive, but , he may also have a restrictive defect as well. I have discussed this with the patient. I have told the patient that asthma is a life-threatening disease. He has been counseled to call 911 or present to the emergency department for any severe respiratory difficulty. I have also instructed the patient to make sure that he follows up in the care clinic for ongoing treatment. He was informed that using a respirator while he paints necessary. I will also make a pulmonary referral upon discharge. Physical Exam Vital Signs: Temp Pulse Resp BP Pulse Ox 98.6 F 74 18 127/71 H 96 05/14/17 11:50 05/14/17 11:50 05/14/17 11:50 05/14/17 11:50 05/14/17 11:50 Intake & Output 05/13/17 05/14/17 05/15/17 06:59 06:59 06:59 Intake Total 795 1170 Balance 795 1170 Weight 67.4 kg 67.4 kg Additional comments: The patient appears to be a healthy middle-age male. In fact, he appears to be younger than his stated age of 51. His facial appearance is unremarkable. His cognition and mentation are appropriate. Today, the patient's lungs were clear to auscultation without wheezing. His cardiac exam is regular without murmurs, gallops or rubs. The abdomen is soft and flat. Bowel sounds are present in the lower quadrants. He does not have guarding or rebound noted and there are no hernias or masses present. The lower extremities are unremarkable without edema. The skin is clean, warm, dry and intact without lesions or rashes. Results Laboratory Results: 05/14/17 06:45 05/14/17 06:45 05/14/17 05/14/17 06:45 06:45 WBC 14.5 H RBC 5.04 Hgb 13.4 L Hct 40.5 MCV 80 MCH 26.6 L MCHC 33.1 RDW 14.1 H Plt Count 187 Seg Neutrophils % Not Reportable Lymphocytes % Not Reportable Monocytes % Not Reportable Eosinophils % Not Reportable Basophils % Not Reportable Absolute Neutrophils Not Reportable Absolute Lymphocytes Not Reportable Absolute Monocytes Not Reportable Absolute Eosinophils Not Reportable Absolute Basophils Not Reportable Sodium 141.3 Potassium 4.4 Chloride 107 Carbon Dioxide 23 Anion Gap 11 BUN 16 Creatinine 1.03 Est GFR ( Amer) > 60 Est GFR (Non-Af Amer) > 60 Glucose 131 H Calcium 9.7 Magnesium 2.1 Impressions: Chest X-Ray 05/11/17 22:38 IMPRESSION: NO ACUTE RADIOGRAPHIC FINDING IN THE CHEST. Plan Discharge Plan: 1 Discharge to home 2. Patient will complete therapy with a azithromycin and prednisone. He was also given prescriptions for continuous use of DuoNeb and budesonide. 3. Patient was told to make a follow-up appointment in the care clinic for primary care. 4. I will make a referral upon discharge to Dr. Campbell, crm marketing specialist. Time Spent: Less than 30 Minutes
[2017-05-14 14:45] VITALS: BP 120/79
--- NOTE | 2017-05-15 13:49 | Physician Advisory Note ---
Physician Advisor ProgressNote .: Pursuant to the plan for [facility], I have reviewed the medical record for this patient. Physician Advisor Statement: Please consider documenting, if you agree: 1. "sepsis, ruled out", vs "sepsis, POA, due to , evidenced by fever, tachycardia, tachypnea, hypotension, with acute organ dysfunction of hypoxemia due to sepsis, & ARF due to sepsis, ..." 2. "Acute exacerbation of type asthma, new dx" If pt has documented increased work of breathing + hypoxemia, that supports dx of "Acute REsp Failure". ("Resp distress" is considered a symptom, not a dx.) Thanks for all you do! CK
--- NOTE | 2017-05-16 13:34 | Pulmonary Function Test ---
Pulmonary Function Test Date of Procedure:: 05/12/17 INDICATION:: Dyspnea Referring Provider: Ayanna Villa M.D. - Report Spirometry: FVC 1.82 L 45% FEV1 1.18 L 36% FEV1/FVC % 65 postbronchodilator 92 predicted 81 FEF 25-75% 0.90 25% Impression: Severe obstructive ventilatory defect is demonstrated. A possible restrictive ventilatory defect. Restrictive ventilatory defects are not diagnosable on the basis of spirometry alone. If clinically indicated complete pulmonary function tests is suggested.
== END 2017-05-14 15:20 | disposition home or self-care (01) | DRG 871 ==
LOC: ER 21:46 → EH 05-12 01:11 → 5 05-12 19:32
PROVIDERS: ADMIT Pediatrics; ATTEND Pediatrics
PROC: 3E0F73Z Introduction of Anti-inflammatory into Respiratory Tract, Via Natural or Artificial Opening (ICD-10-PCS; principal; 2017-05-12)
DX: A41.89 Other specified sepsis (principal); J96.01 Acute respiratory failure with hypoxia; N17.9 Acute kidney failure, unspecified; J20.8 Acute bronchitis due to other specified organisms; J11.1 Influenza due to unidentified influenza virus with other respiratory manifestations; N18.3 Chronic kidney disease, stage 3 (moderate); E86.0 Dehydration; J45.909 Unspecified asthma, uncomplicated; Z59.7 Insufficient social insurance and welfare support
CPT/HCPCS: 36415; 71045; 80048; 80053; 82803; 83605; 83735; 85025; 87040; 94010; 94640; 96361; 96365; 96375; 99285; J0696; J2920; J2930; J3475; J3490; J7030; J7120; J7512; J7620

== ENCOUNTER 2018-06-07 17:12 | Emergency (ER) | payer SELFPAY ==
[2018-06-07 17:24] VITALS: BP 101/68
--- NOTE | 2018-06-07 19:16 | ER Document Report ---
ED Medical Screen (RME) - General Chief Complaint: Chest Pain Stated Complaint: CHEST PAIN Time Seen by Provider: 06/07/18 19:15 Mode of Arrival: Ambulatory Information source: Patient TRAVEL OUTSIDE OF THE [place] IN LAST 30 DAYS: No - HPI Patient complains to provider of: cp Onset: This morning - pt with onset of L-sided CP earlier today. Took ASA earlier - Related Data Allergies/Adverse Reactions: No Known Allergies Allergy (Verified 05/11/17 22:14) Past Medical History Pulmonary Medical History: Reports: Hx Bronchitis Renal/ Medical History: Denies: Hx Peritoneal Dialysis Musculoskeltal Medical History: Reports Hx Musculoskeletal Trauma - Fractured left leg and a nail from a nail gun into the left leg Psychiatric Medical History: Denies: Hx Depression Traumatic Medical History: Reports: Hx Fractures - Right leg had a nail gun nail in the left leg had a broken bone Past Surgical History: Reports: Hx Orthopedic Surgery - Nail gun now removed from right leg - Immunizations Immunizations up to date: Yes Hx Diphtheria, Pertussis, Tetanus Vaccination: Yes History of Influenza Vaccine for 12/2016 - 05/2017 Season: Refused Physical Exam - Vital signs Vitals: Temp Pulse Resp BP Pulse Ox 98.3 F 77 18 101/68 95 06/07/18 17:22 06/07/18 17:22 06/07/18 17:22 06/07/18 17:22 06/07/18 17:22 Course - Vital Signs Vital signs: Temp Pulse Resp BP Pulse Ox 98.3 F 77 18 101/68 95 06/07/18 17:22 06/07/18 17:22 06/07/18 17:22 06/07/18 17:22 06/07/18 17:22
[2018-06-07 19:50] LABS: ABSOLUTE EOSINOPHILS # (AUTO) 0.1 10^3/uL (0.0-0.6); ABSOLUTE LYMPHOCYTES (AUTO) 1.1 10^3/uL (0.5-4.7); ABSOLUTE MONOCYTES (AUTO) 0.6 10^3/uL (0.1-1.4); ABSOLUTE NEUT (AUTO) 3.1 10^3/uL (1.7-8.2); BASOPHILS % (AUTO) 0.6 % (0-2); EOSINOPHILS % (AUTO) 2.2 % (0-6); HEMATOCRIT 40.4 % (37.9-51.0); HEMOGLOBIN 13.8 g/dL (13.5-17.0); LYMPHOCYTES % (AUTO) 21.9 % (13-45); MEAN CORPUSCULAR HEMOGLOBIN 27.9 pg (27.0-33.4); MEAN CORPUSCULAR HGB CONC 34.1 g/dL (32.0-36.0); MEAN CORPUSCULAR VOLUME 82 fl (80-97); MONOCYTES % (AUTO) 11.6 % (3-13); PLATELET COUNT 241 10^3/uL (150-450); RED BLOOD COUNT 4.94 10^6/uL (4.35-5.55); RED CELL DISTRIBUTION WIDTH 13.6 % (11.5-14.0); SEGMENTED NEUTROPHILS % (AUTO) 63.7 % (42-78); TOTAL CELLS COUNTED % (AUTO) 100 %; WHITE BLOOD COUNT 4.9 10^3/uL (4.0-10.5)
--- NOTE | 2018-06-07 19:51 | RADIOLOGY REPORT (SQ) ---
EXAM DESCRIPTION: CHEST 2 VIEWS COMPLETED DATE/TIME: 06/07/2018 7:42 pm REASON FOR STUDY: cp COMPARISON: 05/06/2016. EXAM PARAMETERS: NUMBER OF VIEWS: two views TECHNIQUE: Digital Frontal and Lateral radiographic views of the chest acquired. RADIATION DOSE: NA LIMITATIONS: none FINDINGS: LUNGS AND PLEURA: No acute infiltrates or effusions. . MEDIASTINUM AND HILAR STRUCTURES: No masses or contour abnormalities. HEART AND VASCULAR STRUCTURES: The heart is normal. The pulmonary vasculature is normal. BONES: No acute findings. HARDWARE: None in the chest. OTHER: No other significant finding. IMPRESSION: No acute disease. TECHNICAL DOCUMENTATION: JOB ID: [id number] 2010 [employer]- All Rights Reserved Reading location - IP/workstation name: [email or web address]
[2018-06-07 20:10] LABS: ALANINE AMINOTRANSFERASE 19 U/L (21-72); ALBUMIN 4.2 g/dL (3.5-5.0); ALKALINE PHOSPHATASE 65 U/L (38-126); ANION GAP 9 (5-19); ASPARTATE AMINO TRANSFERASE 24 U/L (17-59); BILIRUBIN,DIRECT 0.1 mg/dL (0.0-0.4); BILIRUBIN,TOTAL 0.4 mg/dL (0.2-1.3); BLOOD UREA NITROGEN 21 mg/dL (7-20); CALCIUM 9.6 mg/dL (8.4-10.2); CARBON DIOXIDE 24 mmol/L (22-30); CHLORIDE 106 mmol/L (98-107); CREATINE KINASE 235 U/L (55-170); GLUCOSE 88 mg/dL (75-110); TOTAL PROTEIN 7.4 g/dL (6.3-8.2)
[2018-06-07 20:22] LABS: CREATINE KINASE MB 0.64 ng/mL (<4.55); TROPONIN I < 0.012 ng/mL
--- NOTE | 2018-06-08 07:03 | EKG REPORT ---
SEVERITY:- NORMAL ECG - SINUS RHYTHM ST ELEV, PROBABLE NORMAL EARLY REPOL PATTERN : Confirmed by: Isrrael Duong MD 08-Jun-2018 07:03:09
== END 2018-06-07 19:35 | disposition left against medical advice (07) ==
LOC: ER 17:12
DX: R07.9 Chest pain, unspecified (principal)
CPT/HCPCS: 36415; 71046; 80053; 82550; 82553; 84484; 85025; 93005; 93010; 99281; 99285

== ENCOUNTER → 2019-10-15 | Outpatient (CLI) | payer SELFPAY ==
[2019-10-15 13:52] VITALS: BP 118/55
--- NOTE | 2019-10-15 13:52 | ER [facility] ASSESSMENT REPORT ---
Intake - In the Last 14 days Have you traveled outside [place]?: No Have you been in close contact with someone CONFIRMED: Yes Worked in Healthcare?: No - Symptoms Subjective Fever([place] feverish): No Chills: No Muscule Aches: No Runny Nose: No Sore Throat: No Cough (New or worsening chronic cough): Yes Shortness of breath: Yes Nausea or Vomiting: No Headache: No Abdominal Pain: No Diarrhea(3 or more loose stools in last 24 hours): No - Do you have any of the following Chronic lung disease: Asthma or emphysema or COPD: Yes Chronic Lung Disease Comment: Asthma Cystic Fibrosis: No Diabetes: No High Blood Pressure: No Cardiovascular Disease: No Chronic Kidney Disease: No Chronic Liver Disease: No Chronic blood disorder like Sickle Cell Disease: No Weak immune system due to disease or medication: No Neurologic condition that limits movement: No Developmental delay - Moderate to Severe: No Recent (within past 2 weeks) or current : No Morbid Obesity (>100 pounds over ideal weight): No - Objective Temperature: 98.3 F Pulse Rate: 63 Respiratory Rate: 20 Blood Pressure: 118/55 O2 Sat by Pulse Oximetry: 96 Objective: Given above, testing performed: If Testing Performed: Test Specimen Type Sent to General - General Information source: Patient Notes: Patient presents to the [facility] for screening for the coronavirus. Patient was recently around his brother who tested positive for the virus. Patient states that he has chronic cough and shortness of breath although is not any worse than what he typically has. - Related Data Allergies/Adverse Reactions: No Known Allergies Allergy (Verified 05/11/17 22:14) Past Medical History - General Information source: Patient - Social History Smoking Status: Never Smoker Family History: Arthritis, CAD, CVA, Hyperlipidemia, Hypertension, Malignancy. denies: DM, Thyroid Disfunction Pulmonary Medical History: Reports: Hx Asthma, Hx Bronchitis Renal/ Medical History: Denies: Hx Peritoneal Dialysis Musculoskeletal Medical History: Reports Hx Musculoskeletal Trauma - Fractured left leg and a nail from a nail gun into the left leg Psychiatric Medical History: Denies: Hx Depression Traumatic Medical History: Reports: Hx Fractures - Right leg had a nail gun nail in the left leg had a broken bone Past Surgical History: Reports: Hx Orthopedic Surgery - Nail gun now removed from right leg Physical Exam - Notes Notes: The patient was evaluated during the global Covid 19 pandemic, and that diagnosis was suspected/considered upon their initial presentation. Their evaluation, treatment and testing was consistent with current guidelines for patients who present with complaints or symptoms that may be related to Covid 19. Full physical exam could not be performed due to covid 19 isolation protocols. Constitutional: Nontoxic appearance, no acute distress Eyes: Nonicteric, extraocular movements intact, sclera clear Cardiovascular: Heart rate and rhythm regular, no JVD Respiratory: Breath sounds clear bilaterally, nonlabored breathing, no use of accessory muscles, no tachypnea Gastrointestinal: Abdomen not distended Muculoskeletal: Moves all extremities well Skin: Normal color Neuro: Awake alert oriented, normal speech Psych: Normal mood and affect Diagnostic Results Laboratory Results: Patient presents with upper respiratory symptoms worrisome for possible Covid 19. Patient does not have emergency worrying symptoms such as difficulty breathing, chest pain, pressure, confusion or cyanosis. Patient appears suitable for discharge as they are not of an advanced age, do not have any chronic medical conditions such as diabetes, CAD, immune deficiency, chronic lung disease or chronic kidney disease. Patient's vital signs are stable and patient is nontoxic in appearance. Good return precautions have been discussed with patient, patient verbalized understanding and is agreeable with discharge plan of care at this time. Patient Education/Counseling Counseling/Education: Patient was provided with discharge information including: As a person under investigation for Covid 19, the [place] department of Health and Human Services, division of public health advises you to adhere to the following guidance until your test results are reported to you. If your test result is positive, you will receive additional information from your provider and your local health department at that time. Remain at home until you are cleared by the health provider or public health authorities. Keep a log of visitors to your home, notify any visitors to your home of your isolation status. If you plan to move to a new address or leave the county, notify the local health department in your County. Call your doctor or seek care if you have an urgent medical need. Before seeking medical care, call ahead to get instructions from the provider before arriving at the medical office clinic or hospital. Notify them that you are being tested for the virus that causes Covid 19 so that arrangements can be made, as necessary, to prevent transmission to others in the healthcare setting. Next, notify the local health department in your county. If a medical emergency arises and you need to call 911, inform the first responders that you are being tested for the virus that causes Covid 19. Next, notify the local health department in your county. [facility] Discharge - Discharge Clinical Impression: Encounter for screening laboratory testing for COVID-19 virus Condition: Stable Disposition: Home; Selfcare
== END ==
LOC: RDC 12:47
PROVIDERS: ATTEND Nurse Practitioner Family
DX: Z20.828 Contact with and (suspected) exposure to other viral communicable diseases (principal); R05 Cough; R06.02 Shortness of breath; J45.909 Unspecified asthma, uncomplicated
CPT/HCPCS: 87635; C9803; 99201; 99211

== ENCOUNTER → 2019-12-22 | Outpatient (CLI) | payer OTHER ==
[2019-12-22 11:17] LABS: ABSOLUTE LYMPHOCYTES (AUTO) 0.8 10^3/uL (0.5-4.7); ABSOLUTE MONOCYTES (AUTO) 0.4 10^3/uL (0.1-1.4); ABSOLUTE NEUT (AUTO) 2.8 10^3/uL (1.7-8.2); BASOPHILS % (AUTO) 0.7 % (0-2); EOSINOPHILS % (AUTO) 1.1 % (0-6); HEMATOCRIT 42.8 % (37.9-51.0); HEMOGLOBIN 14.3 g/dL (13.5-17.0); LYMPHOCYTES % (AUTO) 20.3 % (13-45); MEAN CORPUSCULAR HEMOGLOBIN 27.7 pg (27.0-33.4); MEAN CORPUSCULAR HGB CONC 33.4 g/dL (32.0-36.0); MEAN CORPUSCULAR VOLUME 83 fl (80-97); MONOCYTES % (AUTO) 8.7 % (3-13); PLATELET COUNT 219 10^3/uL (150-450); RED BLOOD COUNT 5.15 10^6/uL (4.35-5.55); RED CELL DISTRIBUTION WIDTH 14.8 % (11.5-14.0); SEGMENTED NEUTROPHILS % (AUTO) 69.2 % (42-78); TOTAL CELLS COUNTED % (AUTO) 100 %; WHITE BLOOD COUNT 4.1 10^3/uL (4.0-10.5)
--- NOTE | 2019-12-22 11:32 | RADIOLOGY REPORT (SQ) ---
EXAM DESCRIPTION: CHEST PA/LATERAL IMAGES COMPLETED DATE/TIME: 12/22/2019 11:11 am REASON FOR STUDY: OTHER CHEST PAIN COMPARISON: 06/07/2018 EXAM PARAMETERS: NUMBER OF VIEWS: two views TECHNIQUE: Digital Frontal and Lateral radiographic views of the chest acquired. RADIATION DOSE: NA LIMITATIONS: none FINDINGS: LUNGS AND PLEURA: No opacities, masses or pneumothorax. No pleural effusion. MEDIASTINUM AND HILAR STRUCTURES: No masses or contour abnormalities. HEART AND VASCULAR STRUCTURES: Heart normal size. No evidence for failure. BONES: No acute findings. HARDWARE: None in the chest. OTHER: No other significant finding. IMPRESSION: NO SIGNIFICANT RADIOGRAPHIC FINDING IN THE CHEST. TECHNICAL DOCUMENTATION: JOB ID: [id number] 2010 [employer]- All Rights Reserved Reading location - IP/workstation name: [email or web address]
[2019-12-22 11:39] LABS: ALBUMIN 4.2 g/dL (3.5-5.0); ALKALINE PHOSPHATASE 64 U/L (38-126); ANION GAP 9 (5-19); ASPARTATE AMINO TRANSFERASE 29 U/L (17-59); BILIRUBIN,DIRECT 0.3 mg/dL (0.0-0.4); BLOOD UREA NITROGEN 15 mg/dL (7-20); CALCIUM 9.3 mg/dL (8.4-10.2); CARBON DIOXIDE 28 mmol/L (22-30); CHLORIDE 105 mmol/L (98-107); CHOLESTEROL 224.48 mg/dL (0-200); GLUCOSE 105 mg/dL (75-110); TRIGLYCERIDES 91 mg/dL (<150)
[2019-12-22 11:40] LABS: APPEARANCE,URINE CLEAR; BILIRUBIN,URINE NEGATIVE (NEGATIVE); COLOR,URINE YELLOW; GLUCOSE, URINE NEGATIVE (NEGATIVE); KETONES,URINE NEGATIVE (NEGATIVE); LEUKOCYTE ESTERASE,URINE NEGATIVE (NEGATIVE); NITRITE,URINE NEGATIVE (NEGATIVE); PROTEIN,URINE NEGATIVE (NEGATIVE); URINE SPECIFIC GRAVITY 1.024
[2019-12-22 11:49] LABS: DIRECT LDL 143 mg/dL (<100)
--- NOTE | 2019-12-22 14:45 | EKG REPORT ---
SEVERITY:- NORMAL ECG - SINUS RHYTHM : Confirmed by: Jerilyn Katz MD 22-Dec-2019 14:43:50
== END ==
LOC: CCC 10:29
PROVIDERS: ATTEND Family Medicine
DX: Z13.9 Encounter for screening, unspecified (principal); R07.89 Other chest pain
CPT/HCPCS: 36415; 71046; 80053; 80061; 81001; 83036; 84443; 85025; 93005; 93010